=== PATIENT | female | born 1985 | race Caucasian/White ===

== ENCOUNTER 2025-04-04 14:13 | Emergency (ER) | payer MEDICAID, OTHER ==
[2025-04-04] MEDS ORDERED: diphenhydrAMINE 50 MG/ML VIAL ONE (14:33)
[2025-04-04] MEDS ORDERED: Famotidine/PF 20 mg/2ml Vial ONE (14:33)
[2025-04-04] MEDS ORDERED: predniSONE 20 MG TAB ONE (14:33)
== END 2025-04-04 16:23 | disposition home or self-care (01) ==
LOC: CSHERS 14:13
DX: T78.40XA Allergy, unspecified, initial encounter (principal); T78.3XXA Angioneurotic edema, initial encounter
CPT/HCPCS: 96372; 96374; 96375; J0169; J1200; J1308; J2919; J7512